=== PATIENT | female | born 1970 | race Two or more races ===

== ENCOUNTER 2021-04-22 21:20 | Inpatient (IN) | payer BC, OTHER ==
[~2021-04-22] VITALS: Ht 172.7 cm; Wt 54.4 kg
[2021-04-22] MEDS ORDERED: ONDANSETRON HCL/PF 4 MG/2 ML VIAL ONE (21:54)
--- NOTE | 2021-04-22 21:54 | NUR ---
MD VERBAL ORDER 1MG DILAUDID AND 4MG ZOFRAN IV
[2021-04-22] MEDS ORDERED: HYDROMORPHONE 1 MG/1 ML DISP.SYRIN ONE ×2 (21:55→23:39)
[2021-04-22] MEDS ORDERED: IV NS 0.9% 1,000 ML BAG IV ONE (22:00)
[2021-04-22] MEDS ORDERED: ONDANSETRON HCL/PF 4 MG/2 ML VIAL IVP ONE (22:00)
[2021-04-22] MEDS ORDERED: HYDROMORPHONE INJ 2 MG/ML DISP.SYRIN IV ONE (22:00)
--- NOTE | 2021-04-22 22:05 | NUR ---
PT [id number] C/O OF LLQ PAIN SEVERE / SINCE THIS AFTERNOON. PT HAS HX OF MULTIPLE SBO, SX INTERVENTION R/T SBO. STAGE 4 CERVICAL CANCER. PT HAS UROSTOMY BAG, DRAINING WELL. INTACT. PT ON MONITOR, VSS. EMS SALINE LOCK PRESENT UPON ARRIVAL. FLUSHED.
[2021-04-22 22:18] LABS: BASOPHILS % (AUTO) 0.4 % (0.0-2.0); EOSINOPHILS % (AUTO) 1.9 % (0.0-6.0); HEMATOCRIT 36 % (33-45); HEMOGLOBIN 12.3 g/dL (11.5-14.8); LYMPHOCYTES # (AUTO) 0.3 K/uL (0.8-4.8); LYMPHOCYTES % (AUTO) 4.9 % (20.0-44.0); MEAN CORPUSCULAR HGB CONC 34 g/dl (31.0-36.0); MEAN CORPUSCULAR VOLUME 95 fL (82-100); MONOCYTES # (AUTO) 0.5 K/uL (0.1-1.30); MONOCYTES % (AUTO) 7.5 % (2.0-12.0); NEUTROPHILS # (AUTO) 5.9 K/uL (1.8-8.9); NEUTROPHILS % (AUTO) 85.3 % (43.0-81.0); PLATELET COUNT (AUTO) 233 K/uL (150-450); RED BLOOD CELL COUNT(AUTO) 3.85 MIL/uL (4.0-5.2); WHITE BLOOD COUNT (AUTO) 6.9 K/uL (4.3-11.0)
[2021-04-22 22:33] LABS: ALBUMIN 4.1 g/dL (3.4-5.0); BILIRUBIN,DIRECT 0.2 mg/dL (0.0-0.2); BILIRUBIN,TOTAL 0.6 mg/dL (0.2-1.0); CALCIUM, SERUM 9.5 mg/dL (8.5-10.1); CREATININE 0.8 mg/dL (0.6-1.3); POTASSIUM 3.5 mmol/L (3.5-5.1); TOTAL PROTEIN, SERUM 7.6 g/dL (6.4-8.2)
--- NOTE | 2021-04-22 22:52 | NUR ---
URINE COLLECTED, SENT FOR LAB
[2021-04-22 23:05] LABS: BILIRUBIN,URINE Negative (NEGATIVE); COLOR,URINE YELLOW (YELLOW); LEUKOCYTE ESTERASE ,URINE Negative (NEGATIVE); NITRITE, URINE Positive (NEGATIVE); PROTEIN,URINE 30 mg/dl (NEGATIVE); UGLUCOSE Negative (NEGATIVE); UROBILINOGEN,URINE 0.2 EU/dL (0.2)
[2021-04-22 23:09] LABS: PH,URINE >9.0 (5.0-8.0)
[2021-04-22 23:24] LABS: BACTERIA,URINE Rare /HPF (None Seen); RBC,URINE 0-2 /HPF (0-2); SQUAMOUS EPITHELIAL CELL,UR Rare /HPF (None Seen)
--- NOTE | 2021-04-22 23:34 | NUR ---
PAGED DR NELSON. DR TO IN PROGRESS.
--- NOTE | 2021-04-22 23:35 | NUR ---
SUBMITTED MOVE SHEET
--- NOTE | 2021-04-22 23:36 | NUR ---
PAGED DR LAURENT PER DR CARRASCO'S ORDER
[2021-04-23] MEDS ORDERED: HYDROMORPHONE 1 MG/1 ML DISP.SYRIN IV ONE
[2021-04-23] MEDS ORDERED: Z GUARD REMEDY 2 OZ OINT TP PRN (00:30)
[2021-04-23] MEDS ORDERED: MAG HYDROX/AL HYDROX/SIMETH 30 ML UDC PO PRN (00:30)
[2021-04-23] MEDS ORDERED: ACETAMINOPHEN 325 MG TABLET PO PRN (00:30)
[2021-04-23] MEDS ORDERED: ZOLPIDEM TARTRATE 5 MG TABLET PO PRN (00:30)
[2021-04-23] MEDS ORDERED: MAGNESIUM HYDROXIDE 30 ML UDC PO PRN (00:30)
--- NOTE | 2021-04-23 01:05 | NUR ---
308-1 PER RN SUP
--- NOTE | 2021-04-23 01:27 | NUR ---
REPORT GIVEN TO MU
--- NOTE | 2021-04-23 01:30 | NUR ---
MS STENOGRAPHIC COURT REPORTER NOTE PT TRANSPORTED VIA GURNEY TO UNIT AT THIS TIME. PT ADMITTED TO MED SURG UNDER DR LAURENT FOR ADMITTING DX OF SBO. A/O X4. PT IS STABLE ON ROOM AIR. NO SOB OR S/S OF RESPIRATORY DISTRESS NOTED. PT C/O SHARP LOWER ABDOMINAL PAIN, RATED 10/10. WILL ADMINISTER PAIN MEDICATION. IV ACCESS IN RIGHT HAND #22. PT KEPT NPO PER ORDER. PT ORIENTED TO STAFF, ROOM, AND UNIT. SAFETY PRECAUTIONS MAINTAINED. BED IN LOWEST LOCKED POSITION, HOB ELEVATED, SIDE RAILS UP X2. CALL LIGHT AND TABLE WITHIN REACH. WILL CONTINUE TO MONITOR.
--- NOTE | 2021-04-23 01:32 | NUR ---
PT WAS TRANSFERRED TO THE THIRD FLOOR IN STABLE CONDITION
[2021-04-23] MEDS: MORPHINE SULFATE INJ 2 MG/ML DISP.SYRIN IV PRN ×6 (01:58→22:36)
--- NOTE | 2021-04-23 01:58 | NUR ---
RN PAIN PT C/O SHARP PAIN IN THE LOWER ABDOMEN, RATED 10/10 ON PAIN SCALE. VSS. PER PT REQUEST, ADMINISTERED MORPHINE 2MG IV Q4H PRN FOR PAIN. WILL REASSESS PT IN 30 MINS AND CONTINUE TO MONITOR PT.
[2021-04-23] MEDS: ONDANSETRON HCL/PF 4 MG/2 ML VIAL IVP PRN ×2 (02:51→10:54)
[2021-04-23 04:00] VITALS: BP 110/65
--- NOTE | 2021-04-23 06:14 | NUR ---
RN PAIN PT C/O SHARP PAIN IN THE LOWER ABDOMEN, RATED 8/10 ON PAIN SCALE. VSS. PER PT REQUEST, ADMINISTERED MORPHINE 2MG IV Q4H PRN FOR PAIN. WILL REASSESS PT IN 30 MINS AND CONTINUE TO MONITOR PT.
[2021-04-23 06:21] LABS: BASOPHILS % (AUTO) 0.5 % (0.0-2.0); HEMATOCRIT 33 % (33-45); HEMOGLOBIN 11.3 g/dL (11.5-14.8); LYMPHOCYTES # (AUTO) 0.3 K/uL (0.8-4.8); LYMPHOCYTES % (AUTO) 7.6 % (20.0-44.0); MEAN CORPUSCULAR HGB CONC 34 g/dl (31.0-36.0); MEAN CORPUSCULAR VOLUME 95 fL (82-100); MONOCYTES # (AUTO) 0.4 K/uL (0.1-1.30); NEUTROPHILS # (AUTO) 3.3 K/uL (1.8-8.9); NEUTROPHILS % (AUTO) 80.9 % (43.0-81.0); PLATELET COUNT (AUTO) 212 K/uL (150-450); RED BLOOD CELL COUNT(AUTO) 3.47 MIL/uL (4.0-5.2); WHITE BLOOD COUNT (AUTO) 4.1 K/uL (4.3-11.0)
--- NOTE | 2021-04-23 06:27 | NUR ---
MS RN CLOSING NOTE PT IS AWAKE IN BED. A/O X4. PT IS STABLE ON ROOM AIR. NO SOB OR S/S OF RESPIRATORY DISTRESS NOTED. PT DENIES PAIN OR DISCOMFORT AT THIS TIME. IV ACCESS IS INTACT, PATENT, AND FLUSHING WELL. PT KEPT NPO D/T UPCOMING XR SMALL BOWEL FOLLOW THROUGH. ALL NEEDS HAVE BEEN MET. PAIN MANAGEMENT ADMINISTERED PER ORDER. SAFETY PRECAUTIONS MAINTAINED AT ALL TIMES. BED IN LOWEST LOCKED POSITION, HOB ELEVATED, SIDE RAILS UP X2. CALL LIGHT AND TABLE WITHIN REACH. WILL ENDORSE TO ONCOMING NURSE FOR ADDIE.
[2021-04-23 06:40] LABS: CALCIUM, SERUM 9.3 mg/dL (8.5-10.1); CREATININE 0.9 mg/dL (0.6-1.3); MAGNESIUM 2.3 mg/dL (1.8-2.4); PHOSPHORUS 4.8 mg/dL (2.5-4.9); POTASSIUM 3.8 mmol/L (3.5-5.1)
--- NOTE | 2021-04-23 07:37 | NUR ---
RN OPENING NOTE PT AWAKE IN BED RESTING. ON RA WITH NO SOB OR RESPIRATORY DISTRESS PRESENT. A/O X4 AND DIVEHI SPEAKING. NO COMPLAINT OF PAIN OR NAUSEA. PAIN AND NAUSEA MED PRESCRIBED. 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 NO EDEMA PRESENT. UROSTOMY BAG PRESENT. ON BEDREST. SKIN IS INTACT. PT ON NPO STATUS DUE TO SBO. IV PRESENT ON R HAND 22G AND FLUSHES WELL. LABS AND ORDERS REVIEWED. SAFETY MEASURES IN PLACE. SIDE RAILS RAISED. BED LOWERED. CALL LIGHT WITHIN REACH. WILL CONTINUE TO MONITOR.
[2021-04-23 08:00] VITALS: BP 112/76
[2021-04-23] MEDS ORDERED: ESCI10TA PO (08:20)
[2021-04-23] MEDS ORDERED: AMPH10TA4 PO (08:20)
--- NOTE | 2021-04-23 08:45 | NUR ---
Patient refusing SBFT exam as of 0700 this morning. RN Please call Radiology at ext. [phone] if patient wants to proceed. MALCOLM Fernandez notified.
[2021-04-23] MEDS ORDERED: LACTULOSE 10 G/15 ML UDC (PYXIS) PO PRN (12:00)
--- NOTE | 2021-04-23 12:00 | NUR ---
RN NOTE PT EDUCATED ON LACTULOSE FOR SBO. PT SAYS SHE WILL TAKE MED TOMORROW. WILL ENDORSE TO COAT CHECKER.
[2021-04-23 16:00] VITALS: BP 127/75
--- NOTE | 2021-04-23 18:39 | NUR ---
RN CLOSING NOTE PT AWAKE IN BED RESTING. ON RA WITH NO SOB OR RESPIRATORY DISTRESS PRESENT. A/O X4 AND LUXEMBOURGISH SPEAKING. NO COMPLAINT OF PAIN OR NAUSEA. PAIN AND NAUSEA MED PRESCRIBED AND GIVEN PER PROTOCOL. 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 NO EDEMA PRESENT. UROSTOMY BAG PRESENT. ON BEDREST. SKIN IS INTACT. PT ON NPO STATUS DUE TO SBO. IV PRESENT ON R HAND 22G AND FLUSHES WELL. ROUTINE MEDS GIVEN. LABS AND ORDERS REVIEWED. SAFETY MEASURES IN PLACE. SIDE RAILS RAISED. BED LOWERED. CALL LIGHT WITHIN REACH. WILL GIVE REPORT TO NIGHT NURSE FOR ADDIE.
--- NOTE | 2021-04-23 20:02 | NUR ---
MS RN OPENING NOTES PATIENT RESTING IN BED, ALERT/ORIENTED X 4, PT ABLE TO MAKE NEEDS KNOWN. PATIENT STABLE ON RA, NO S/S OF DISTRESS OR SOB NOTED, BREATHING EVEN AND UNLABORED. RIGHT LOWER QUADRANT UROSTOMY BAG PRESENT. RIGHT HAND #22G IV INTACT AND FLUSHING WELL. PATIENT NPO DUE TO SBO EXCEPT FOR LACTULOSE. SAFETY MEASURES IN PLACE: BED LOCKED IN LOW POSITION, SIDE RAILS UP X 2, CALL LIGHT WITHIN REACH. WILL CONTINUE TO MONITOR PATIENT
[2021-04-24] MEDS: MORPHINE SULFATE INJ 2 MG/ML DISP.SYRIN IV PRN ×4 (02:33→21:22)
--- NOTE | 2021-04-24 06:12 | NUR ---
MS RN NOTE PATIENT REFUSING LAB DRAW, DISCUSSED RISKS AND BENEFITS BUT PATIENT STILL REFUSED
--- NOTE | 2021-04-24 07:00 | NUR ---
MS RN CLOSING NOTES PATIENT SLEEPING IN BED, NO S/S OF DISTRESS OR SOB NOTED, BREATHING EVEN AND UNLABORED. MEDICATIONS GIVEN ORDERED, PT NEEDS MET. ENDORSED TO DAY SHIFT NURSE FOR CONTINUITY OF CARE
--- NOTE | 2021-04-24 07:59 | NUR ---
MS RN OPENING NOTES RECEIVED PATIENT IN BED, ASLEEP. PATIENT ON ROOM AIR. BREATHING IS EVEN AND UNLABORED, NO SOB NOTED. NO S/S OF PAIN SUCH FACIAL GRIMACING MOANING OR GUARDING AT THIS TIME. IV ACCESS ON R HAND G #22, SL. SAFETY PRECAUTIONS IN PLACE; BED IN LOW POSITION AND LOCKED, RAILS UP X2, CALL LIGHT WITHIN REACH. WILL CONTINUE TO MONITOR PATIENT.
[2021-04-24 08:00] VITALS: BP 107/62
[2021-04-24] MEDS: ESCITALOPRAM OXALATE (10 MG) 10 MG TABLET PO SCH (08:27)
[2021-04-24] MEDS ORDERED: DIATR MEGLU/DIATRIZOATE SODIUM 120 ML BOTTLE (GASTROGRAPHIN) ONE (08:55)
--- NOTE | 2021-04-24 09:18 | NUR ---
xray clinical ob taken at 08:55am, Pt unable to drink contrast, Radiologist suggest NG tube, RN notifed pt unable drink, and needed to be NG tube. pt refused for NG tube and refused to do the test.
--- NOTE | 2021-04-24 10:01 | NUR ---
MS RN NOTES PATIENT TAKEN DOWN FOR SBO X-RAY. AT X-RAY PATIENT REFUSED TO DRINK THE CONTRAST STATING SHE CAN NOT DO IT. PATIENT WAS INFORMED THAT SHE MAY POSSIBLY HAVE AN NG-TUBE INSERTED FOR THE CONTRAST. PATIENT REFUSED STATING SHE DOES NOT WANT ANY OF IT. NOTIFIED AND AWARE.
[2021-04-24 16:00] VITALS: BP 107/65
--- NOTE | 2021-04-24 16:12 | NUR ---
MS RN NOTES PATIENT COMPLAINING OF PAIN, REQUESTING PRN PAIN MEDICATION. PRN MORPHINE ADMINISTERED. WILL REASSESS.
--- NOTE | 2021-04-24 18:43 | NUR ---
MS RN CLOSING NOTES PATIENT IN BED, ASLEEP. PATIENT ON ROOM AIR. BREATHING IS EVEN AND UNLABORED, NO SOB NOTED. PAIN TREATED WITH PRN MORPHINE. IV ACCESS ON R HAND G #22, SL. ALL NEEDS ATTENDED DURING THE DAY. SAFETY PRECAUTIONS IN PLACE; BED IN LOW POSITION AND LOCKED, RAILS UP X2, CALL LIGHT WITHIN REACH. WILL ENDORSE TO SEAFOOD TEAM MEMBER NURSE.
--- NOTE | 2021-04-24 19:48 | NUR ---
MS RN OPENING NOTES PATIENT RESTING IN BED, ALERT/ORIENTED X 4, PT ABLE TO MAKE NEEDS KNOWN. PATIENT STABLE ON RA, NO S/S OF DISTRESS OR SOB NOTED, BREATHING EVEN AND UNLABORED. RIGHT LOWER QUADRANT UROSTOMY BAG PRESENT. RIGHT HAND #22G IV INTACT AND FLUSHING WELL. SAFETY MEASURES IN PLACE: BED LOCKED IN LOW POSITION, SIDE RAILS UP X 2, CALL LIGHT WITHIN REACH. WILL CONTINUE TO MONITOR PATIENT
[2021-04-24 20:00] VITALS: BP 107/45
[2021-04-25] MEDS: MORPHINE SULFATE INJ 2 MG/ML DISP.SYRIN IV PRN (01:36)
--- NOTE | 2021-04-25 07:30 | NUR ---
MS RN NOTES PATIENT SLEEPING IN BED, NO S/S OF DISTRESS OR SOB NOTED, BREATHING EVEN AND UNLABORED. NO SIGNIFICANT CHANGES IN PT CONDITION THROUGHOUT SHIFT. PT STILL HASN'T HAD BM, JUST PASSING GAS. ENDORSED TO DAY SHIFT NURSE FOR CONTINUITY OF CARE
[2021-04-25 08:00] VITALS: BP 98/62
[2021-04-25] MEDS: ESCITALOPRAM OXALATE (10 MG) 10 MG TABLET PO SCH (09:49)
[2021-04-25] MEDS ORDERED: OXYC10TA49 PO (11:18)
--- NOTE | 2021-04-25 11:30 | NUR ---
MS RN NOTE PATIENT SEEN BY DR. JIMENEZ WITH ORDERS FOR DISCHARGE. ORDERS MADE AND CARRIED OUT. HEALTH TEACHING DONE REGARDIGN DISCHARGE AND MEDICATIONS AND MEDICATION INSTRUCTIONS. PATIENT VERBALIZED UNDERSTANDIGN AND APPRECIATION. COMFORT MEASURES PROVIDED. IV ACCESS REMOVED REQUESTED. TOLERATED WELL. AWAITING PICK-UP BY FRIEND. WILL CONTINUE TO MONITOR PATIENT.
--- NOTE | 2021-04-25 12:30 | NUR ---
MS RN NOTE PATIENT IS SELF RESPONSIBLE WITH VERY STEADY GAIT. ABLE TO AMBULATE WTIHOUT ANY PROBLEM. PATIENT DISCHARGED ORDERED . MEDICALLY STABLE. PATIENT ACCOMPANIED BY NURSE TO LOBBY VIA WHEELCHAIR WITH NO SIGNS OF DISTRESS. ENDORSED ACCORDINGLY.
== END 2021-04-25 12:30 | disposition home or self-care (01) | DRG 389 ==
LOC: ER 21:22 → MED 04-23 01:12
PROVIDERS: ADMIT Registered Nurse; ATTEND Nurse Practitioner Acute Care
DX: K56.609 Unspecified intestinal obstruction, unspecified as to partial versus complete obstruction (principal); N13.30 Unspecified hydronephrosis; Z85.41 Personal history of malignant neoplasm of cervix uteri; Z20.822 Contact with and (suspected) exposure to COVID-19; Z92.21 Personal history of antineoplastic chemotherapy; Z98.890 Other specified postprocedural states; Z93.6 Other artificial openings of urinary tract status
CPT/HCPCS: 36415; 74250-TC; 80048-TC; 80061-TC; 80076-TC; 81001; 83690-TC; 83735-TC; 84100-TC; 84703-TC; 85025-TC; 87081-TC; 87086-TC; C9803; G0378; J1170; J2270; J2405; J7030; Q9963